=== PATIENT | male | born 1985 | race Caucasian/White ===

== ENCOUNTER 2017-04-16 12:09 | Inpatient (IN) | payer OTHER ==
[~2017-04-16] VITALS: Ht 182.9 cm; Wt 92.8 kg
[2017-04-16] MEDS ORDERED: ONDANSETRON 2MG/ML, 2ML ONE (12:46)
[2017-04-16] MEDS ORDERED: MORPHINE SULFATE 4 MG/ML, 1ML ONE ×2 (12:46→15:09)
[2017-04-16] MEDS: MORPHINE SULFATE 4 MG/ML, 1ML IVPush PRN ×2 (12:48→15:14)
[2017-04-16] MEDS ORDERED: SODIUM CHLORIDE FLUSH 10ML SYR IVF ONE (13:00)
[2017-04-16] MEDS ORDERED: SODIUM CHLORIDE 0.9% 1,000ML IVBOLUS ONE ×2 (13:00→15:00)
[2017-04-16] MEDS ORDERED: ONDANSETRON 2MG/ML, 2ML IVPush ONE (13:00)
[2017-04-16 13:12] LABS: ASPARTATE AMINO TRANSFERASE 14 U/L (15-37); BLOOD UREA NITROGEN 18 mg/dL (7-18)
[2017-04-16 13:26] LABS: DIFF TOTAL CELLS COUNTED 100 CELL DIFF
[2017-04-16 13:27] LABS: VERIFY COUNTS? YES
[2017-04-16] MEDS ORDERED: PLEASE ENTER ALLERGIES MC SCH ×2 (13:30)
[2017-04-16] MEDS ORDERED: OMNIPAQUE 350 MG/ML, 100ML BOTTLE ONE (14:07)
[2017-04-16] MEDS ORDERED: METRONIDAZOLE PMX 500MG/100ML 100 ML IV ONE (15:00)
[2017-04-16] MEDS: PIPERACILLIN/TAZO/PMX 3.375GM 50 ML IVPB ONE ×2 (15:00→15:15)
[2017-04-16] MEDS ORDERED: CEFOTETAN PMX 1GM/50ML 50 ML IVPB ONE (15:00)
[2017-04-16] MEDS ORDERED: METRONIDAZOLE PMX 500MG/100ML 100 ML ONE (15:09)
[2017-04-16] MEDS ORDERED: PIPERACILLIN/TAZO/PMX 3.375GM 50 ML ONE (15:09)
[2017-04-16] MEDS ORDERED: SODIUM CHLORIDE 0.9% 1,000 ML IV ONE (15:21)
[2017-04-16] MEDS ORDERED: BUPIVACAINE/PF-EPI 0.25% 1:200K ONE (16:12)
[2017-04-16] MEDS ORDERED: FENTANYL PF 250 MCG/5ML ONE (16:14)
[2017-04-16] MEDS ORDERED: MIDAZOLAM 1 MG/ML, 2ML ONE (16:14)
[2017-04-16] MEDS ORDERED: ROCURONIUM 10 MG/ML ONE (16:43)
[2017-04-16] MEDS ORDERED: SUCCINYLCHOLINE 20 MG/ML, 10ML ONE (16:43)
[2017-04-16] MEDS ORDERED: GLYCOPYRROLATE 0.2MG/1ML ONE (16:43)
[2017-04-16] MEDS ORDERED: NEOSTIGMINE 1 MG/ML, 10ML ONE (16:43)
[2017-04-16] MEDS ORDERED: PROPOFOL 10 MG/ML, 20ML ONE (16:43)
[2017-04-16] MEDS ORDERED: MEPERIDINE/PF 25MG/0.5ML IVPush PRN (17:00)
[2017-04-16] MEDS ORDERED: FENTANYL PF 100 MCG/2ML IV PRN (17:00)
[2017-04-16] MEDS ORDERED: PROMETHAZINE 25 MG/ML, 1ML IV PRN (17:00)
[2017-04-16] MEDS ORDERED: HYDROmorphone 1 MG/ML, 1ML IV PRN (17:00)
[2017-04-16] MEDS ORDERED: OXYcodone 5 MG/5 ML ORAL.SOL UDC PO PRN (17:00)
[2017-04-16] MEDS ORDERED: ONDANSETRON 2MG/ML, 2ML IVPush PRN ×2 (17:00→18:00)
[2017-04-16] MEDS ORDERED: FENTANYL PF 100 MCG/2ML ONE (17:57)
[2017-04-16] MEDS ORDERED: OXYcodone 5 MG/5 ML ORAL.SOL UDC ONE (17:58)
[2017-04-16] MEDS ORDERED: MEPERIDINE/PF 25MG/0.5ML ONE (17:58)
[2017-04-16] MEDS ORDERED: DIPHENHYDRAMINE 50 MG/ML, 1ML IV PRN (18:00)
[2017-04-16] MEDS ORDERED: SODIUM CHLORIDE 0.9%, 500ML IVBOLUS PRN (18:00)
[2017-04-16 20:04] VITALS: BP 114/64
[2017-04-16] MEDS: OXYcodone/APAP 5/325MG TABLET PO PRN (20:12)
[2017-04-16] MEDS: LACTATED RINGERS 1,000 ML IV SCH (22:03)
[2017-04-16 22:04] VITALS: BP 114/64
[2017-04-16 23:59] VITALS: BP 96/48
[2017-04-17] MEDS: OXYcodone/APAP 5/325MG TABLET PO PRN ×6 (00:08→21:31)
[2017-04-17 03:33] VITALS: BP 96/59
[2017-04-17 05:15] LABS: BLOOD UREA NITROGEN 14 mg/dL (7-18)
[2017-04-17] MEDS: HYDROmorphone 1 MG/ML, 1ML IV PRN ×3 (05:23→10:57)
[2017-04-17 06:55] VITALS: BP 119/60
[2017-04-17] MEDS: LACTATED RINGERS 1,000 ML IV SCH ×2 (07:04→17:21)
[2017-04-17] MEDS: CEFOTETAN PMX 2GM/50ML 50 ML IV SCH ×2 (07:04→18:06)
[2017-04-17 13:05] VITALS: BP 112/61
[2017-04-17 18:59] VITALS: BP 108/59
[2017-04-18] MEDS: HYDROmorphone 1 MG/ML, 1ML IV PRN (00:33)
[2017-04-18 01:04] VITALS: BP 109/66
[2017-04-18] MEDS: OXYcodone/APAP 5/325MG TABLET PO PRN ×3 (01:49→22:45)
[2017-04-18] MEDS: LACTATED RINGERS 1,000 ML IV SCH ×3 (04:00→23:59)
[2017-04-18] MEDS: CEFOTETAN PMX 2GM/50ML 50 ML IV SCH ×2 (06:15→19:49)
[2017-04-18 06:50] VITALS: BP 131/71
[2017-04-18 09:46] LABS: BLOOD UREA NITROGEN 5 mg/dL (7-18)
[2017-04-18 12:49] VITALS: BP 127/68
[2017-04-18] MEDS: ACETAMINOPHEN 325 MG TABLET PO PRN ×2 (13:56→19:49)
[2017-04-18] MEDS: ALBUTEROL SULFATE 2.5 MG/3 ML NPPB PRN (16:55)
[2017-04-18] MEDS ORDERED: OMNIPAQUE 350 MG/ML, 75ML BOTTLE ONE (19:15)
[2017-04-18 19:31] VITALS: BP 117/71
[2017-04-18] MEDS: AMOXICILLIN/CLAV 875-125MG TABLET PO SCH (21:51)
[2017-04-19 01:57] VITALS: BP 137/71
[2017-04-19] MEDS: OXYcodone/APAP 5/325MG TABLET PO PRN (04:34)
[2017-04-19 07:15] VITALS: BP 126/68
[2017-04-19] MEDS: ALBUTEROL SULFATE 2.5 MG/3 ML NPPB PRN (07:40)
[2017-04-19] MEDS: CEFOTETAN PMX 2GM/50ML 50 ML IV SCH (08:24)
[2017-04-19] MEDS: AMOXICILLIN/CLAV 875-125MG TABLET PO SCH (08:25)
[2017-04-19] MEDS: LACTATED RINGERS 1,000 ML IV SCH (08:25)
[2017-04-19] MEDS ORDERED: POLYETHYLENE GLYCOL 17 GM PACKET PO ONE (08:30)
[2017-04-19] MEDS ORDERED: METR500T PO (08:54)
[2017-04-19] MEDS ORDERED: OXYC5CAP4 PO (08:54)
[2017-04-19] MEDS ORDERED: CIPR500S2 PO (08:54)
[2017-04-19] MEDS ORDERED: PROM25AM6 PO (08:56)
[2017-04-19] MEDS ORDERED: POLY17PO5 PO (09:25)
[2017-04-19 11:13] VITALS: BP 126/70
== END 2017-04-19 11:52 | disposition home or self-care (01) | DRG 340 ==
LOC: ED 13:44 → EDIP 15:22 → 4NOR 18:28
PROVIDERS: ADMIT Surgery; ATTEND Surgery
PROC: 0W9G40Z Drainage of Peritoneal Cavity with Drainage Device, Percutaneous Endoscopic Approach (ICD-10-PCS; 2017-04-16)
PROC: 0DTJ4ZZ Resection of Appendix, Percutaneous Endoscopic Approach (ICD-10-PCS; principal; 2017-04-16 16:30)
DX: K35.2 Acute appendicitis with generalized peritonitis (principal); F17.200 Nicotine dependence, unspecified, uncomplicated; N28.9 Disorder of kidney and ureter, unspecified
CPT/HCPCS: 36415; 71010; 71275; 74177; 80048; 80053; 81001; 82040; 83605; 83690; 84145; 85025; 87040; 87086; 87147; 88304; 93005; 94640; 96361; 96365; 96375; J1170; J2175; J2250; J2405; J2543; J2704; J2710; J3010; J3490; J7613; Q9967; J0330; J7030; J7120; S0074